=== PATIENT | female | born 1980 | race Caucasian/White ===

== ENCOUNTER 2018-04-27 08:54 | Emergency (ER) | payer SELFPAY ==
[~2018-04-27] VITALS: Ht 160 cm; Wt 64.5 kg
[~2018-04-27 08:54] MED LIST: MOBI7.5T PO; ROBA750T3 PO; Z.0.BCPILL PO
[2018-04-27 08:57] VITALS: BP 150/74; PULSE 98; RESP 18; TEMP 98; O2SAT 99
[2018-04-27] MEDS ORDERED: LIDOCAINE HCL 1% PF 30 ML VIAL ONE (09:11)
[2018-04-27] MEDS ORDERED: LIDOCAINE HCL 1% 50 ML VIAL INFIL ONE (09:15)
[2018-04-27] MEDS ORDERED: CEPH-460 PO (09:29)
--- NOTE | 2018-04-27 09:29 | PD ---
HPI Chief Complaint: Lump, Cyst, Hernia Time Seen by Provider: 09:03 Travel History International Travel<30 days: No Contact w/Intl Traveler<30days: No Traveled to known affect area: No History of Present Illness HPI 37-year-old woman presents to the emergency department complaining of painful swollen lump on her right shoulder. She had a small tiny lump there before but over the past several days gotten more inflamed red swollen and painful. No drainage. Never had previous similar problems. Otherwise has been feeling well and healthy. No fevers. History Past Medical History Medical History: Denies Significant Hx LMP: MARCH 2018 Social History Alcohol Use: Yes (occ.) Tobacco Use: No Allergies-Medications (Allergen,Severity, Reaction): Coded Allergies: duloxetine (Unverified Allergy, Severe, 06/27/17) topiramate (Unverified Allergy, Severe, 06/27/17) Sulfa (Sulfonamide Antibiotics) (Verified Allergy, Unknown, 04/27/18) Reported Meds & Prescriptions Reported Meds & Active Scripts Active Keflex (Cephalexin) 500 Mg Cap 500 Mg PO Q8H 5 Days Reported Control Pills (Miscellaneous Medication) Tab 1 Tab PO DAILY Robaxin-750 (Methocarbamol) 750 Mg Tab 750 Mg PO TID Mobic (Meloxicam) 7.5 Mg Tab 7.5 Mg PO DAILY Review of Systems Except as stated in HPI: all other systems reviewed are Neg Physical Exam Narrative GENERAL: Well-appearing 37-year-old woman, no acute distress. SKIN: Warm and dry. CARDIOVASCULAR: Warm and well perfused. RESPIRATORY: Normal rate and effort. MUSCULOSKELETAL: On the outside of her right shoulder over the deltoid there is a 2 cm area of of discrete prominent swelling with erythema and tenderness suggestive of inflamed sebaceous cyst. No surrounding erythema or cellulitis. NEUROLOGICAL: Awake and alert. No gross deficits. Data Data Last Documented VS Vital Signs Date Time Temp Pulse Resp B/P (MAP) Pulse Ox O2 Delivery O2 Flow Rate FiO2 04/27/18 08:57 98.0 98 18 150/74 (99) 99 Orders Orders Ed Urine Pregnancytest Poc (04/27/18 09:07) Lidocaine 1% Inj (50 Ml) (Xylocaine 1% I (04/27/18 09:15) Lidocaine Pf 1% Inj (Xylocaine-Mpf 1% In (04/27/18 09:11) [facility] Medical Decision Making Medical Screen Exam Complete: Yes Emergency Medical Condition: Yes Differential Diagnosis Sebaceous cyst, abscess, cellulitis, malignancy, other Narrative Course Medical decision making Is a 37-year-old woman who presents to the emergency department complaining of inflamed sebaceous cyst versus abscess. Favor the former. Will drain. She may be . Will check a test. I do not think she needs any antibiotics. We will have her continue warm compresses, antibiotics if symptoms not improving in 48 hours. Procedures Procedure Narrative INCISION AND DRAINAGE OF ABSCESS: The area was prepped and was sterilely draped. A subcutaneous wheal of % Xylocaine 1 with a total number 3 mL was used to anesthetize the area. The area was properly anesthetized. A number 11 scalpel was used to make a 1 -cm incision across the area of the abscess. Cultures were obtained. The abscess was drained an irrigated with normal saline. Quarter inch iodoform packing was placed in the wound. Sterile dressing applied. Patient advised to have packing removed in two days. Diagnosis Primary Impression: Inflamed sebaceous cyst Patient Instructions: General Instructions Additional Instructions: Take acetaminophen or ibuprofen as needed for pain. Apply warm compresses to the area 3 or 4 times daily did encourage continued drainage. If symptoms are not significantly improved in 48 hours, take antibiotics. Return to the emergency department for any new or worsening symptoms. Med/Other Pt SpecificInfo: Prescription(s) given Scripts Cephalexin (Keflex) 500 Mg Cap 500 MG PO Q8H for Infection for 5 Days, #15 CAP 0 Refills Prov: Jung Clancy MD 04/27/18 Disposition: 01 DISCHARGE HOME Condition: Stable Jung Clancy MD Apr 27, 2018 09:29
== END 2018-04-27 10:20 | disposition home or self-care (01) ==
LOC: NEPD 08:54
DX: L72.3 Sebaceous cyst (principal)
CPT/HCPCS: 10061; 84703